=== PATIENT | male | born 1960 | race Caucasian/White ===

== ENCOUNTER 2016-12-17 00:49 | Emergency (ER) | payer OTHER ==
[~2016-12-17] VITALS: Ht 177.8 cm; Wt 100.0 kg
[2016-12-17 00:54] VITALS: Ht 177.8 cm; Wt 100.0 kg
--- NOTE | 2016-12-17 01:34 | RADRPT ---
PROCEDURE: CT Brain without contrast. CLINICAL INDICATION: Trauma, headache. TECHNIQUE: A CT of the brain was performed utilizing axial sections from the skull base through th e vertex without contrast. Multiplanar re-formations were generated. Images were reviewed on a high- resolution PACS workstation. CTDIvol: 44.26 mGy. DLP: 810.25 mGy-cm. One or more of the following dose reduction techniques were used: - Automated exposure control. - Adjustment of the mA and/or kV according to patient size. - Use of iterative reconstruction technique. COMPARISON: None available FINDINGS: There is moderate generalized volume loss. No hydrocephalus is seen. There is no mass effect. No [place] intracranial hemorrhage is identified. There is no extra-axial collection. No CT evidence of ac [place] infarction is identified. There is patchy low attenuation in the supratentorial white matter, a nonspecific finding which most likely represents the sequela of mild chronic microvascular ischemic disease. There are minimal atherosclerotic arterial calcifications. There is no significant mucosal disease in the paranasal sinuses. The visualized mastoid air cells a re clear. The ossesous structures are unremarkable. The extracranial soft tissues are unremarkable. IMPRESSION: 1. No acute intracranial pathology. 2. Moderate generalized volume loss. 3. Mild chronic microvascular ischemic changes. 4. Atherosclerotic arterial calcifications. RPTAT: HTAR .Toño Matute MD, MD Date Time Electronically viewed and signed by .Toño Matute MD, MD on 12/17/2016 01:34 .R/
--- NOTE | 2016-12-17 01:37 | RADRPT ---
PROCEDURE: CT Cervical Spine without contrast. CLINICAL INDICATION: Trauma TECHNIQUE: Noncontrast CT of the cervical spine was performed with axial images. Coronal and sagitta l images were also performed. The administered radiation dose was CTDI vol = 22 mGy, DLP = 576 mGy- cm. COMPARISON: There are no similar studies submitted for comparison. FINDINGS: Multilevel cervical spondylotic changes are present with some posterior disk vascular complexes, unc overtebral facet arthrosis. There is moderate to marked spinal canal and neural foraminal narrowing throughout the cervical spine. Vertebral body stature and alignment are maintained. No acute fracture or subluxation is identified. The paravertebral and paraspinous soft tissues are unremarkable. Atherosclerotic calcifications are noted in the carotid arteries. IMPRESSION: No acute fracture or subluxation. RPTAT: HIKT .Sabino Seay MD, MD Date Time Electronically viewed and signed by .Sabino Seay MD, on 12/17/2016 01:37 .T/
--- NOTE | 2016-12-17 01:41 | RADRPT ---
PROCEDURE: XR Hip. CLINICAL INDICATION: Fall, hip pain. TECHNIQUE: Two views of the left hip. COMPARISON: None available. FINDINGS: No fracture or dislocation is identified. The patient status post internal fixation of a iliac bone and acetabulum. There are dystrophic calcifications adjacent to the left iliac bone and acetabulum. Moderate superior joint space narrowing is noted in the left hip. IMPRESSION: 1. No fracture or dislocation of the left hip. 2. Status post internal fixation of the iliac bone and acetabulum. 3. Moderate superior joint space narrowing in the left hip. RPTAT: HTAR .Toño Matute MD, MD Date Time Electronically viewed and signed by .Toño Matute MD, MD on 12/17/2016 01:41 .R/
--- NOTE | 2016-12-17 01:50 | ERD ---
ER Documentation Chief Complaint Date/Time DATE: 12/17/16 TIME: 01:47 Chief Complaint BIBA [id number] ground level fall, nosebridge lac r/t ETOH intoxication,hip pain HPI This is a 56-year-old male who presents via EMS after being drunk tripping and falling. He walked out of the bar and was walking to his car and tripped over a on air announcer. He fell face forward onto his face. The patient has abrasion to the forehead and bridge of the nose. He states his tetanus is up-to-date. He describes a mild headache. He denies anticoagulants. No neck pain. He describes mild left hip pain and has a history of left hip fixation. No prodrome of chest pain or shortness of breath. No extremity pain. ROS All systems reviewed and are negative except as per history of present illness. Allergies Allergies: Coded Allergies: No Known Allergy (Unverified , 12/17/16) PMhx/Soc Medical and Surgical Hx: pt denies Medical Hx, pt denies Surgical Hx Hx Alcohol Use: Yes Hx Substance Use: Yes Hx Tobacco Use: Yes Smoking Status: Current every day smoker FmHx Family History: No diabetes Physical Exam Vitals Vital Signs Date Time Temp Pulse Resp B/P Pulse Ox O2 Delivery O2 Flow Rate FiO2 12/17/16 00:54 98.5 99 18 133/78 95 Physical Exam Airway is intact Bilateral breath sounds Strong distal pulses No obvious deficits General: Well developed, well nourished, no acute distress, moderately intoxicated Head: Multiple abrasions to the forehead and bridge of the nose without laceration, no open wounds, no occipital hematoma Eyes: Pupils equally reactive, EOM intact ENT: Moist mucous membranes Neck: Supple, no lymphadenopathy, No midline tenderness, deformities, step-offs to the cervical spine, full active and passive range of motion without midline pain. Respiratory: Lungs clear bilaterally, no distress, no chest wall tenderness, no crepitus Cardiovascular: RRR, no murmurs, rubs, or gallops Abdominal: Soft, non-tender, non-distended, no peritoneal signs, pelvis is stable : Deferred MSK: No edema, no unilateral swelling, 5/5 strength, no midline tenderness deformities or step-offs to the thoracolumbar spine Neurologic: Alert and oriented, moving all extremities, normal speech, no focal weakness, no cerebellar signs Skin: No ecchymoses or bruising to the chest or abdomen, skin is documented on the face above Psych: Normal mood Procedures/MDM EKG, MONITORS, & DIAGNOSTIC IMAGING: CT brain: No evidence of acute fracture or intracranial hemorrhage per radiology read CT cervical spine: No evidence of acute fracture dislocation Per radiology read MEDICAL DECISION MAKING: The patient's presentation is consistent with acute alcohol intoxication and clear mechanical fall. No evidence of syncope. I have a much lower clinical concern for clinically significant traumatic brain injury, meningitis, significant electrolyte disturbance The patient's workup will include appropriate laboratory testing and diagnostic imaging, as well as observation for sobriety. The patient's presentation is most consistent with acute alcohol intoxication leading to acute encephalopathy. The patient is protecting their airway. The patient has no signs or symptoms concerning for impending respiratory failure and does not require intubation at this time. The patient will require observation in the emergency room to allow for metabolization. Once the patient is able to ambulate on their own accord, navigate the community the patient can be safely discharged from the emergency room. ER COURSE: His wounds were cleansed, no indication for laceration repair all wounds are mild and very superficial abrasions without need for laceration repair. CT brain and cervical spine are negative. Once the patient can ambulate he can call a family member or friend to take him home. I kept the patient and/or family informed of laboratory and diagnostic imaging results throughout the emergency room course. DISPOSITION PLAN: Pending ambulation trial and appropriate disposition but anticipate discharge home Departure Diagnosis: Primary Impression: Alcoholic intoxication Complication of substance-induced condition: uncomplicated Qualified Code: F10.120 - Alcoholic intoxication, uncomplicated Additional Impression: Closed head injury Encounter type: initial encounter Qualified Code: S09.90XA - Closed head injury, initial encounter Condition: Stable Patient Instructions: Alcohol Intoxication, HEAD INJURY, No Wake-Up (Adult) Referrals: COMMUNITY CLINICS YOU HAVE RECEIVED A MEDICAL SCREENING EXAM AND THE RESULTS INDICATE THAT YOU DO NOT HAVE A CONDITION THAT REQUIRES URGENT TREATMENT IN THE EMERGENCY DEPARTMENT. FURTHER EVALUATION AND TREATMENT OF YOUR CONDITION CAN WAIT UNTIL YOU ARE SEEN IN YOUR DOCTORS OFFICE WITHIN THE NEXT 1-2 DAYS. IT IS YOUR RESPONSIBILITY TO MAKE AN APPOINTMENT FOR FOLOW-UP CARE. IF YOU HAVE A PRIMARY DOCTOR --you should call your primary doctor and schedule an appointment IF YOU DO NOT HAVE A PRIMARY DOCTOR YOU CAN CALL OUR PHYSICIAN REFERRAL HOTLINE AT IF YOU CAN NOT AFFORD TO SEE A PHYSICIAN YOU CAN CHOSE FROM THE FOLLOWING [facility] [address] [facility] [address] [facility] [address] [facility] [address] [facility] [address] [facility] [facility] [address] [facility] [facility] YOU HAVE RECEIVED A MEDICAL SCREENING EXAM AND THE RESULTS INDICATE THAT YOU DO NOT HAVE A CONDITION THAT REQUIRES URGENT TREATMENT IN THE EMERGENCY DEPARTMENT. FURTHER EVALUATION AND TREATMENT OF YOUR CONDITION CAN WAIT UNTIL YOU ARE SEEN IN YOUR DOCTORS OFFICE WITHIN THE NEXT 1-2 DAYS. IT IS YOUR RESPONSIBILITY TO MAKE AN APPOINTMENT FOR FOLOW-UP CARE. IF YOU HAVE A PRIMARY DOCTOR --you should call your primary doctor and schedule and appointment IF YOU DO NOT HAVE A PRIMARY DOCTOR YOU CAN CALL OUR PHYSICIAN REFERRAL HOTLINE AT . IF YOU CAN NOT AFFORD TO SEE A PHYSICIAN YOU CAN CHOSE FROM THE FOLLOWING [facility]: [facility] [address] [place] [address] [facility] [address] [place], [place] [id number] [place] [address] [address] [place] [address] Additional Instructions: Call your primary care doctor TOMORROW for an appointment during the next 1 WEEK.Tell the corporate legal secretary that you were referred from this facility.See the doctor sooner or return here if your condition worsens before your appointment time. KEL NOGUERA MD Dec 17, 2016 01:48
[2016-12-17 06:04] VITALS: BP 119/75; PULSE 77; RESP 17; TEMP 98.1
== END 2016-12-17 08:08 | disposition home or self-care (01) ==
LOC: E/R 00:49
DX: F10.120 Alcohol abuse with intoxication, uncomplicated (principal); R40.2142 Coma scale, eyes open, spontaneous, at arrival to emergency department; S09.90XA Unspecified injury of head, initial encounter; F17.210 Nicotine dependence, cigarettes, uncomplicated; R40.2362 Coma scale, best motor response, obeys commands, at arrival to emergency department; R51 Headache; W01.0XXA Fall on same level from slipping, tripping and stumbling without subsequent striking against object, initial encounter; Y92.9 Unspecified place or not applicable
CPT/HCPCS: 70450; 72125; 73510; Z7502